=== PATIENT | female | born 1965 | race Caucasian/White ===

== ENCOUNTER 2018-11-30 10:46 | Day surgery (SDC) | payer BC ==
[~2018-11-30] VITALS: Ht 157.5 cm; Wt 71.6 kg
[~2018-11-30 10:46] MED LIST: ESTR2 PO; FAMO40 PO; FURO40 PO; IBUP600 PO; METO50 PO; METOPROLOL SUCC25 MG PO; OLME5TAB PO; OXYACE5T PO; [UNRECOGNIZED DRUG - OTHER] TOP
== END 2018-11-30 13:44 | disposition home or self-care (01) ==
LOC: ORSCSDS 10:46
PROVIDERS: Internal Medicine Gastroenterology
PROC: 0DBL8ZX Excision of Transverse Colon, Via Natural or Artificial Opening Endoscopic, Diagnostic (ICD-10-PCS; principal; 2018-11-30 12:00)
PROC: 0DBN8ZX Excision of Sigmoid Colon, Via Natural or Artificial Opening Endoscopic, Diagnostic (ICD-10-PCS; principal; 2018-11-30 12:00)
DX: Z12.11 Encounter for screening for malignant neoplasm of colon (principal); D12.5 Benign neoplasm of sigmoid colon; D12.3 Benign neoplasm of transverse colon; G47.30 Sleep apnea, unspecified; I10 Essential (primary) hypertension; K64.8 Other hemorrhoids; K57.30 Diverticulosis of large intestine without perforation or abscess without bleeding; Z79.899 Other long term (current) drug therapy
CPT/HCPCS: 88305; J2704; J7120

== ENCOUNTER 2023-08-25 09:14 | Day surgery (SDC) | payer BC ==
[~2023-08-25] VITALS: Ht 157.5 cm; Wt 68.5 kg
[~2023-08-25 09:14] MED LIST changes: +Lactated Ringer's 1,000 ML IV ONE; +propofoL 50 ML IV ONE
[2023-08-25] MEDS ORDERED: POTCHL20ER (10:04)
[2023-08-25] MEDS ORDERED: HYDCHL25 (10:05)
[2023-08-25] MEDS ORDERED: POLY500 (10:06)
[2023-08-25] MEDS ORDERED: MAGNESIUM COMP300 MG (10:07)
[2023-08-25] MEDS ORDERED: VIT D2-K1 20-1259 ML (10:07)
[2023-08-25] MEDS ORDERED: MERIBIN5 MG (10:08)
[2023-08-25] MEDS ORDERED: CENTRUM SILVER1 EAC2 (10:08)
[2023-08-25] MEDS ORDERED: [UNRECOGNIZED DRUG - OTHER] (10:08)
[2023-08-25] MEDS ORDERED: VITAMIN B121000 MCG (10:09)
[2023-08-25] MEDS ORDERED: Lactated Ringer's 1,000 ML IV ONE (10:38)
[2023-08-25 11:31] VITALS: BP 129/86
== END 2023-08-25 11:25 | disposition home or self-care (01) ==
LOC: ORSCSDS 09:14
PROVIDERS: Surgery
PROC: 0DJD8ZZ Inspection of Lower Intestinal Tract, Via Natural or Artificial Opening Endoscopic (ICD-10-PCS; principal; 2023-08-25 10:30)
DX: Z12.11 Encounter for screening for malignant neoplasm of colon (principal); Z86.010 Personal history of colon polyps; I10 Essential (primary) hypertension; G47.33 Obstructive sleep apnea (adult) (pediatric)
CPT/HCPCS: J2704; J7120